=== PATIENT | male | born 1995 | race Two or more races ===

== ENCOUNTER 2019-11-18 14:05 | Emergency (ER) | payer OTHER ==
[~2019-11-18] VITALS: Ht 177.8 cm; Wt 95.3 kg
[2019-11-18 14:26] VITALS: BP 120/70
[2019-11-18] MEDS ORDERED: FAMOTIDINE (20 MG) 20 MG TABLET ONE (14:36)
[2019-11-18] MEDS ORDERED: predniSONE 20 MG TABLET ONE (14:36)
[2019-11-18] MEDS ORDERED: diphenhydrAMINE HCL 50 MG CAPSULE ONE (14:36)
--- NOTE | 2019-11-18 14:55 | NUR ---
Patient discharged to home in stable condition. Written and verbal after care instructions given. Patient verbalizes understanding of instruction. Pt ambulatory with a steady gait
[2019-11-18] MEDS ORDERED: predniSONE 10 MG TABLET PO ONE (15:00)
[2019-11-18] MEDS ORDERED: diphenhydrAMINE HCL 50 MG CAPSULE PO ONE (15:00)
[2019-11-18] MEDS ORDERED: FAMOTIDINE (20 MG) 20 MG TABLET PO ONE (15:00)
== END 2019-11-18 14:56 | disposition home or self-care (01) ==
LOC: ER 14:10
DX: S60.861A Insect bite (nonvenomous) of right wrist, initial encounter (principal); S50.861A Insect bite (nonvenomous) of right forearm, initial encounter; F41.9 Anxiety disorder, unspecified; W57.XXXA Bitten or stung by nonvenomous insect and other nonvenomous arthropods, initial encounter; Y93.89 Activity, other specified; Y92.89 Other specified places as the place of occurrence of the external cause; Y99.8 Other external cause status
CPT/HCPCS: 99284; J7512; Q0163